=== PATIENT | male | born 1985 | race Caucasian/White ===

== ENCOUNTER 2016-10-29 23:44 | Observation (INO) | payer OTHER ==
[2016-10-30] MEDS ORDERED: NS 0.9% 1000 ML* 1,000 ML IV ONE (02:04)
[2016-10-30 02:14] LABS: Hematocrit 45 % (42-52); Hemoglobin 15.8 g/dl (14.0-18.0); Mean Corpuscular HGB Conc 35 g/dl (31-36); Mean Corpuscular Hemoglobin 30 pg (27-31); Mean Corpuscular Volume 84 fL (80-94); Mean Platelet Volume 9 um3 (7.4-10.4); Red Blood Count 5.34 10^6/ul (4.0-5.4); Red Cell Distribution Width 13 % (10.5-15); White Blood Count 16.8 10^3/ul (3.5-10.8)
[2016-10-30 02:19] LABS: Urine Bacteria Absent (Absent); Urine Bilirubin Negative (Negative); Urine Glucose Negative (Negative); Urine Nitrite Negative (Negative)
[2016-10-30 02:31] LABS: Albumin 4.8 g/dL (3.2-5.2); BUN/Creatinine Ratio 13.6 (8-20); C Reactive Protein 12.51 mg/L (< 5.00); Calcium 10.1 mg/dL (8.6-10.3); EGFR African American 129.1 (>60); EGFR Non-African American 100.4 (>60); Globulin 3.5 g/dL (2-4); Potassium 3.5 mmol/L (3.5-5.0); Total Bilirubin 1.4 mg/dL (0.2-1.0); Total Protein 8.3 g/dL (6.4-8.9)
[2016-10-30] MEDS ORDERED: Ondansetron INJ* 2 MG/ML VIAL IV ONE (02:33)
[2016-10-30] MEDS ORDERED: Ketorolac INJ* 30 MG/ML 1 ML VIAL IV PUSH ONE (02:33)
[2016-10-30] MEDS ORDERED: Pantoprazole IV* 40 MG IV ONE (02:33)
[2016-10-30] MEDS ORDERED: Iohexol 300* (CONTRAST) 10 ML SDV IV ONE (03:02)
--- NOTE | 2016-10-30 06:38 | ED ---
Linda Gill Rebecca, scribed for Ben Arzate MD on 10/30/16 at 0231 . Abdominal Pain/Male - HPI Summary HPI Summary: Pt is a 31 y/o M who presents to ED c/o abd pain since approximately 1900. Pain is predominantly in the epigastric with slight RUQ pain. Pain has been constant since onset, waxing and waning in intensity and is currently moderate, ranked 4/ 10. Sx aggravated by walking, alleviated slightly by Tums. Additionally c/o N/ V. Abd pain did not improve after vomiting. Denies fever. No PSHx on the abdomen. - History of Current Complaint Chief Complaint: EDAbdPain Stated Complaint: ABD PAIN Time Seen by Provider: 10/30/16 02:13 Hx Obtained From: Patient Onset/Duration: Sudden Onset, Still Present Timing: Constant Severity Currently: Moderate Pain Intensity: 4 Pain Scale Used: 0-10 Numeric Location: Epigastric Aggravating Factor(s): Other: - Walking Alleviating Factor(s): Other: - Tums - slightly Associated Signs And Symptoms: Positive: Vomiting, Diarrhea. Negative: Fever - Allergies/Home Medications Allergies/Adverse Reactions: Allergies Allergy/AdvReac Type Severity Reaction Status Date / Time No Known Allergies Allergy Verified 02/26/15 08:50 PMH/Surg Hx/FS Hx/Imm Hx Endocrine/Hematology History: Denies: Hx Diabetes Cardiovascular History: Reports: Hx Hypercholesterolemia Denies: Hx Hypertension - Surgical History Surgery Procedure, Year, and Place: implant Hyprocure each ankle 2013; wisdom teeth Infectious Disease History: No Infectious Disease History: Denies: Hx Clostridium Difficile, Hx Hepatitis, Hx Human Immunodeficiency Virus (HIV), Hx of Known/Suspected MRSA, Hx Shingles, Hx Tuberculosis, Hx Known/ Suspected VRE, Hx Known/Suspected VRSA, History Other Infectious Disease, Traveled Outside the [place] in Last 30 Days - Family History Known Family History: Positive: Diabetes - Social History Alcohol Use: Occasionally Substance Use Type: Reports: None Smoking Status (MU): Never Smoked Tobacco Review of Systems Negative: Fever Positive: Abdominal Pain - Epigastric, Vomiting, Nausea All Other Systems Reviewed And Are Negative: Yes Physical Exam - Summary Physical Exam Summary: The patient is well-nourished in no acute distress and in no acute pain. The skin is warm and dry and skin color reflects adequate perfusion. Good skin turgor. HEENT: The head is normocephalic and atraumatic. The pupils are equal and reactive. The conjunctivae are clear and without drainage. Nares are patent and without drainage. Mouth reveals moist mucous membranes and the throat is without erythema and exudate. The external ears are intact. The ear canals are patent and without drainage. The tympanic membranes are intact. Neck is supple with full range of motion and non-tender. Respiratory: Chest is non-tender. Lungs are clear to auscultation and breath sounds are symmetrical and equal. Cardiovascular: Hear is regular rate and rhythm. There is no murmur or rub auscultated. There is no peripheral edema and pulses are symmetrical and equal. Abdomen: The abdomen is soft with tenderness in the epigastric and RUQ regius. No tenderness over McBurney's point. There are normal bowel sounds heard in all four quadrants and there is no organomegaly palpated. Musculoskeletal: No CVA tenderness. Extremities are non-tender with full range of motion. There is good capillary refill. There is no peripheral edema or calf tenderness elicited. Neurological: Patient is alert and oriented to person, place and time. Psychiatric: The patient has an appropriate affect and does not exhibit any anxiety or depression. Triage Information Reviewed: Yes Vital Signs On Initial Exam: Initial Vitals Temp Pulse Resp BP Pulse Ox 98.9 F 109 17 118/77 100 10/29/16 23:48 10/29/16 23:48 10/29/16 23:48 10/29/16 23:48 10/29/16 23:48 Vital Signs Reviewed: Yes Diagnostics - Vital Signs Vital Signs Temp Pulse Resp BP Pulse Ox 10/30/16 02:00 104 122/78 97 10/30/16 01:30 96 129/75 95 10/30/16 01:13 90 98 10/30/16 00:30 121/76 10/29/16 23:48 98.9 F 109 17 118/77 100 - Laboratory Lab Results: Lab Results 10/30/16 10/30/16 Range/Units 01:05 01:05 WBC 16.8 H (3.5-10.8) 10^3/ul RBC 5.34 (4.0-5.4) 10^6/ul Hgb 15.8 (14.0-18.0) g/dl Hct 45 (42-52) % MCV 84 (80-94) fL MCH 30 (27-31) pg MCHC 35 (31-36) g/dl RDW 13 (10.5-15) % Plt Count 224 (150-450) 10^3/ul MPV 9 (7.4-10.4) um3 Neut % (Auto) 85.6 H (38-83) % Lymph % (Auto) 7.0 L (25-47) % [place] % (Auto) 7.1 (1-9) % Eos % (Auto) 0.1 (0-6) % Baso % (Auto) 0.2 (0-2) % Absolute Neuts (auto) 14.3 H (1.5-7.7) 10^3/ul Absolute Lymphs (auto) 1.2 (1.0-4.8) 10^3/ul Absolute Monos (auto) 1.2 H (0-0.8) 10^3/ul Absolute Eos (auto) 0 (0-0.6) 10^3/ul Absolute Basos (auto) 0 (0-0.2) 10^3/ul Absolute Nucleated RBC 0.01 10^3/ul Nucleated RBC % 0.1 Urine Color Yellow Urine Appearance Clear Urine pH 8.0 (5-9) Ur Specific [place] 1.026 (1.010-1.030) Urine Protein 1+(30 mg/dl) H (Negative) Urine Ketones 2+ H (Negative) Urine Blood Negative (Negative) Urine Nitrate Negative (Negative) Urine Bilirubin Negative (Negative) Urine Urobilinogen Negative (Negative) Ur Leukocyte Esterase Negative (Negative) Urine WBC (Auto) Trace(0-5/hpf) (Absent) Urine RBC (Auto) Trace(0-2/hpf) (Absent) Urine Bacteria Absent (Absent) Urine Glucose Negative (Negative) Result Diagrams: 10/30/16 01:05 10/30/16 01:05 Lab Statement: Any lab studies that have been ordered have been reviewed, and results considered in the medical decision making process. - CT CT Abd/Pel CT Interpretation: Positive (See Comments) - There is mild, but abnormal dilatation of the appendix up to approximately 9.5 mm. There may be very mild fatty stranding caround the appendix. Although the findings are borderline and mild, early acute appendicitis can look like this and close observation/ followup is recommended. No abscess. No bowel obstruction free air, or free fluid. Negative for oclitis or diverticulitis. Normal kidneys urinary trace and urinary bladder. Slightly prominent prostate. Normal liver. Normal gallbladder. Normal pancreas. Normal adrenal glands. ED physician reviewed radiology report. CT Interpretation Completed By: Radiologist Abdominal Pain Fem Course/Dx - Course Assessment/Plan: Pt is a 31 y/o M who presents to ED c/o abd pain since approximately 1900. Pain is predominantly in the epigastric with slight RUQ pain. Pain has been constant since onset, waxing and waning in intensity and is currently moderate, ranked 4/10. Sx aggravated by walking, alleviated slightly by Tums. Additionally c/o N/V. Abd pain did not improve after vomiting. Denies fever. No PSHx on the abdomen. CT Abd/Pel interpretation above. WBC of 16.8, CRP of 12.51. UA reveals urine color: yellow, appearance: clear, protein: 1+, ketones: 2+, WBC: trace, RBC: trace and negative for blood, nitrate and bacteria. In the ED course, pt recieved Toradol, Zofran and protonix. Discussed care of pt with Dr. Sawyer who will evaluate the pt in the ED. Pt will be signed out with Dx of abdominal pain and appendicitis, pending disposition, awaiting Dr. Sawyer consultation. - Diagnoses Differential Diagnosis/HQI/PQRI: Appendicitis, Gall Bladder Disease Provider Diagnoses: Abdominal pain, Appendicitis - Provider Notifications Discussed Care Of Patient With: Emre Sawyer Time Discussed With Above Provider: 06:23 Instructed by Provider To: Other - Will evaluate the pt in the ED. Discharge - Discharge Plan Condition: Stable Disposition: OTHER Discharge Disposition Comment: Pt will be signed out, pending dispo, awaiting Dr. Sawyer consult. Referrals: Manuela Emmanuel MD [Primary Care Provider] - The documentation as recorded by the Linda rogel Rebecca accurately reflects the service I personally performed and the decisions made by me, Ben Arzate MD.
--- NOTE | 2016-10-30 08:16 | RAD ---
INDICATION: ] Right upper quadrant pain. Epigastric pain. COMPARISON: None TECHNIQUE: Axial source images were obtained from the hemidiaphragms to the symphysis pubis following administration of oral and intravenous contrast. 85 mL Omnipaque 300 was utilized. Coronal and sagittal reconstructed images were acquired. Lung bases: The lung bases are clear. Liver: The liver is normal in size. There are no masses. There is no ductal dilatation. Gallbladder: There are no calcified gallstones. There is no evidence of wall thickening or pericholecystic fluid. Spleen: The spleen is normal in size. There are no masses. Pancreas: There is no focal pancreatic mass or ductal dilatation. Adrenal glands: There is no evidence of adrenal mass. Kidneys: The kidneys are normal in size and position. There are prompt nephrograms and there is prompt excretion bilaterally. There are no renal parenchymal masses. There is no evidence of nephrolithiasis. Adenopathy: There is no evidence of adenopathy by size criteria. Fluid collections: There are no free or localized fluid collections. Vessels:There are no significant atherosclerotic changes involving the aorta. There is no focal aneurysm. The iliac vessels are normal in caliber. The IVC appears normal. GI tract: The upper GI tract is unremarkable. There is mild thickening of the terminal ileum which is likely reactive. The appendix is dilated and fluid-filled. There is periappendiceal inflammatory change. There is mild thickening of cecal tip which is likely reactive. The colon is otherwise unremarkable. There are no findings of obstruction or perforation. Pelvic organs: The prostate and seminal vesicles appear normal Bladder: There are no bladder masses. Abdominal and pelvic soft tissues: The extraperitoneal abdominal and pelvic soft tissues appear normal.. Osseous structures: There are no acute osseous findings. Other: None IMPRESSION: CT FINDINGS OF ACUTE APPENDICITIS
[2016-10-30] MEDS ORDERED: HYDROmorphone* 1 MG/ML 1 ML CARPUJECT IV PRN ×2 (08:24→13:40)
[2016-10-30] MEDS ORDERED: Ondansetron INJ* 2 MG/ML VIAL IV PRN (08:24)
--- NOTE | 2016-10-30 08:58 | PN ---
Progress Note - Progress Note Date of Service: 10/30/16 Note: Surgery Asked by Dr. Sawyer to take over care of Mr. Yates. I have met with and examined him and I agree that he has appendicitis. I have described to him the nature of laparoscopic appendectomy, its risks, benefits, and alternatives. He understands and agrees to proceed. Rufino
[2016-10-30] MEDS ORDERED: ZOSYN 3.375 GM Q6H - Intermittant 30 min Infusion IVPB SCH ×2 (09:00)
--- NOTE | 2016-10-30 09:12 | HP ---
CC: Dr. Manuela Emmanuel * DATE OF ADMISSION: 10/29/16 ATTENDING PHYSICIAN: Dr. Nicole Espinoza * (dictated by ROCÍO Lopez) CHIEF COMPLAINT: Abdominal pain. HISTORY OF PRESENT ILLNESS: Mr. Yates is a pleasant 31-year-old gentleman who presented to the emergency room in the late evening hours of 10/29/16 with complaints of worsening abdominal pain. Patient reports that his pain started roughly around 7 o'clock yesterday evening while he was eating dinner. He described it as dull aching pain that initially started in the epigastric area, and then gradually migrated to the umbilical and right abdomen. He notes that the pain has been consistent since then and associated with nausea and one episode of vomiting. He denies having any similar complaints in the past. He presented to the emergency room after he called his primary care physician who advised him to seek medical attention. During his ED stay overnight, patient had laboratory workup that showed leukocytosis with white count 16,000, and he also had a CT scan of the abdomen and pelvis that showed finding consistent with acute appendicitis for which we were asked to see the patient for further evaluation and possible surgical intervention. Patient feels slightly better this morning after he took some pain medication in the ED overnight. He still has moderate consistent abdominal pain on the right side, but denies any nausea or vomiting at this time. He otherwise is a relatively healthy young gentleman with no significant past medical history. PAST MEDICAL HISTORY: Significant for: GERD for which he has been on Omeprazole for a few years, and now he's taking on an as-needed basis. PAST SURGICAL HISTORY: Significant for hyprocure ankle implants bilaterally in 2013, as well as wisdom teeth removal years ago. CURRENT MEDICATIONS: His medications at home include: 1. Occasional Tums for heartburn. 2. Omeprazole for GERD symptoms on an as-needed basis. ALLERGIES: He has no known drug allergies. FAMILY HISTORY: Noncontributory. SOCIAL HISTORY: The patient is employed. He's a non-smoker who drinks alcohol occasionally, and caffeine intake is minimal. REVIEW OF SYSTEMS: See HPI, otherwise negative. He reports middle and right- sided abdominal pain with associated nausea and one episode of vomiting, but denies any changes in bowel habits, fever, chills, or history of kidney stones. No headache, dizziness, blurred vision. No sore throat, cough, shortness of breath or chest pain. No flank pain, dysuria, hematuria or urinary frequency. No fever, chills, night sweats, or recent weight loss. PHYSICAL EXAMINATION GENERAL: He is a pleasant healthy-appearing, 31-year-old gentleman who appears comfortable and in no acute distress or discomfort at the time of admission. VITALS: Most recent set of vitals revealed temperature 99.5, pulse 102, respirations 20, O2 sat 95% on room air, and blood pressure 114/72. HEENT: Sclerae anicteric. PERRLA. EOMs intact. Oropharynx is pink and moist with no exudate. NECK: Supple. Trachea midline. No cervical adenopathy or thyromegaly. LUNGS: Clear to auscultation bilaterally. There are no rales, wheezing or rhonchi. HEART: Regular rate and rhythm. Normal S1 and S2 without rubs, murmurs, or gallops. BACK: Normal curvature. No CVA tenderness. ABDOMEN: Soft and nondistended. There is mild to moderate periumbilical and right lower quadrant tenderness noted on deep palpation. There is some guarding , but no rigidity noted. There is also slight rebound tenderness noted with right lower quadrant palpation. Polanco's sign was negative. There are no hernias, masses or hepatosplenomegaly. EXTREMITIES: Without cyanosis, clubbing, or edema. NEUROLOGIC: Grossly intact. RECTAL EXAM: Deferred at this time. LABORATORY WORKUP: CBC - white count 16,800, hemoglobin 15.8, hematocrit 45, and platelets 224. Chemistry - sodium 136, potassium 3.5, chloride 99, CO2 27, BUN 12, and creatinine 0.9. His glucose is 111. LFTs with slightly elevated bilirubin of 1.4, and C-reactive protein was 12.5. Normal amylase and lipase. ACCESSORY DIAGNOSTIC DATA: Patient had a CT scan of abdomen and pelvis that showed dilated appendix measuring up 9.5 mm with some mild stranding around the mesoappendix, consistent with acute appendicitis. IMPRESSION: A 31-year-old male with signs and symptoms as well as CT scan findings consistent with acute appendicitis. PLAN: Patient will be directly admitted under surgical services. I have spoken to Dr. Espinoza who agreed and accepted patient care, and will likely be taken to the operating room later this morning in anticipation for a laparoscopic appendectomy. The rationale, indications, risks and benefits of surgery were discussed with him today. Risks include but not limited to infection, bleeding, or injury to adjacent structures. The patient seems to understand and wishes to proceed as outlined. We will keep him NPO, and will cover him prophylactically with Zosyn at this point, and will follow him up accordingly. ROCÍO LOPEZ [id number]/[facility] #: [id number] MONIE
[2016-10-30] MEDS ORDERED: Zosyn per Pharmacy* NOTE FOLLOW UP PRN (09:54)
[2016-10-30] MEDS ORDERED: fentaNYL* 50 MCG/ML 2 ML VIAL (100 MCG VIAL) ONE (11:05)
[2016-10-30] MEDS ORDERED: Midazolam* 1 MG/ML 2 ML VIAL (2 MG) ONE (11:05)
[2016-10-30] MEDS ORDERED: KETAMINE HCL* 50 MG/ML 10 ML VIAL ONE (11:05)
[2016-10-30] MEDS ORDERED: Propofol* 10 MG/ML 20 ML BTL IV PUSH ONE (11:09)
[2016-10-30] MEDS ORDERED: Rocuronium* 10 MG/ML VIAL ONE (11:10)
[2016-10-30] MEDS ORDERED: Succinylcholine* 20 MG/ML 10 ML VIAL ONE ×2 (12:14→13:49)
[2016-10-30] MEDS ORDERED: Lidocaine 1% INJ* 10 MG/ML 30 ML SDV ONE (12:14)
[2016-10-30] MEDS ORDERED: Bupivacaine 0.25% SDV* 30 ML ONE (12:35)
[2016-10-30] MEDS ORDERED: DiMENhydriNATE IV* 50 MG/ML VIAL IV PUSH PRN (13:40)
[2016-10-30] MEDS ORDERED: fentaNYL* 50 MCG/ML 2 ML VIAL (100 MCG VIAL) IV PRN (13:40)
--- NOTE | 2016-10-30 13:42 | SURGPN ---
Brief Operative Note - Surgery Procedures: 10/30/16 Op Note Pre-op dx: appendicitis Post-0p dx: same Procedure: laparoscopic appendectomy Surgeon: Alexis Asst: IRAM Santiago Anesth: general EBL: 100 cc Complications: none SCDs on during surgery Abx: given pre-op Pt. tolerated procedure well and was transferred to in a stable condition. CLFoster
[2016-10-30] MEDS ORDERED: Dexamethasone IV* 4 MG/ML 1 ML (4 MG) ONE (13:49)
[2016-10-30] MEDS ORDERED: Ketorolac INJ* 30 MG/ML 1 ML VIAL ONE (13:49)
[2016-10-30] MEDS ORDERED: Ondansetron INJ* 2 MG/ML VIAL ONE (13:49)
[2016-10-30] MEDS ORDERED: Zosyn per Pharmacy* NOTE FOLLOW UP SCH (14:00)
[2016-10-30] MEDS ORDERED: DiMENhydriNATE IV* 50 MG/ML VIAL ONE (14:26)
[2016-10-30] MEDS: ZOSYN 3.375 GM Q6H - Intermittant 30 min Infusion IVPB SCH ×6 (15:33→18:43)
[2016-10-30] MEDS: oxyCODONE/Acetamin 5/325 MG* TAB PO PRN (22:52)
[2016-10-31] MEDS: ZOSYN 3.375 GM Q6H - Intermittant 30 min Infusion IVPB SCH ×4 (01:01→06:26)
[2016-10-31] MEDS: NS 0.9% 1000 ML* 1,000 ML IV SCH ×2 (01:01→08:45)
--- NOTE | 2016-10-31 04:23 | OP ---
CC: [facility]; Dr. Manuela Emmanuel OPERATIVE SUMMARY: DATE OF OPERATION: 10/30/16 DATE OF : 83 SURGEON: Nicole Espinoza MD SERVICE OR WORK DISPATCHER: none PRE-OP DIAGNOSIS: Appendicitis. POST-OP DIAGNOSIS: Appendicitis plus pigmented lesion of the umbilicus. INDICATIONS: This patient is a 31-year-old male who presented to the emergency room with abdominal pain consistent with appendicitis prompting a plan for surgical intervention. DESCRIPTION OF PROCEDURE: He was brought to her operating room and placed on the OR table in a supine position and given general anesthesia. The abdomen was prepped and draped in the usual sterile fashion. After infiltrating with local anesthetic, it was recognized that there was a pigmented lesion in the umbilicus. I elected to excise this with an elliptical incision encompassing the lesion and handed all of this as a specimen. Then blunt dissection was used to dissect down to the fascia, it was grasped and incised, and a 0 Biosyn stitch was placed on either side of the fascial incision. A trocar was inserted into the abdomen and the abdomen was insufflated. Then under direct visualization, a suprapubic and a left flank port were replaced after infiltrated with a local anesthetic. The cecum was rotated medially along with the terminal ileum and this exposed an acutely inflamed appendix that was densely adherent to the underside of the terminal ileum. Blunt and electrocautery dissection were used to free the appendix up and in the process of doing this, part of the mesoappendix was divided bluntly. The base of the appendix was divided with an Endo JENNIFER stapler and this encompassed a portion of the mesoappendix as well. The appendix was placed in an Endo Catch bag and withdrawn from the abdomen through the infraumbilical port site. There was some bleeding that had produced some pulling of blood in the right lower quadrant and pelvis. This was irrigated out with copious irrigation of saline. Then, the region of the appendix was checked for hemostasis. This was found to be adequate, so all ports were withdrawn under direct visualization. It should be mentioned that the small and large intestine that were seen were noted to be normal. All ports were withdrawn under direct visualization. The previously placed 0 Biosyn was used to close the fascia of the infraumbilical port site and 4-0 Biosyn was used to close the skin of all incisions. Steri- Strips were applied. All sponge and instrument counts were correct. The patient tolerated the procedure well and was transferred to Recovery in a stable condition. [id number]/[facility] #: [id number] [facility]
[2016-10-31] MEDS: oxyCODONE/Acetamin 5/325 MG* TAB PO PRN ×2 (06:33→10:00)
--- NOTE | 2016-10-31 08:05 | PN ---
Progress Note - Progress Note Date of Service: 10/31/16 Note: Surgery Mr. Yates has a "pressure pain" in the upper abdomen that just started, but otherwise he has been feeling "great". He is tolerating food and has been ambulating. Vital Signs 10/30/16 10/30/16 10/30/16 13:42 13:45 13:50 Temperature 98.8 F Pulse Rate 118 103 104 Respiratory 20 24 24 Rate Blood Pressure 99/71 117/76 124/74 (mmHg) O2 Sat by Pulse 92 96 98 Oximetry 10/30/16 10/30/16 10/30/16 14:00 14:15 14:30 Temperature Pulse Rate 84 89 87 Respiratory 18 18 18 Rate Blood Pressure 121/82 131/83 134/84 (mmHg) O2 Sat by Pulse 98 98 98 Oximetry 10/30/16 10/30/16 10/30/16 14:45 15:05 15:06 Temperature 99.1 F 99.1 F Pulse Rate 90 106 106 Respiratory 18 16 16 Rate Blood Pressure 127/84 126/78 126/78 (mmHg) O2 Sat by Pulse 98 98 98 Oximetry 10/30/16 10/30/16 10/30/16 16:18 17:11 19:18 Temperature 98.9 F 98.4 F Pulse Rate 88 109 Respiratory 16 18 16 Rate Blood Pressure 112/69 104/66 (mmHg) O2 Sat by Pulse 96 93 Oximetry 10/30/16 10/30/16 10/30/16 19:24 21:02 22:00 Temperature 97.7 F 98.3 F Pulse Rate 93 79 Respiratory 16 18 16 Rate Blood Pressure 122/67 109/60 (mmHg) O2 Sat by Pulse 94 98 96 Oximetry 10/30/16 10/30/16 10/31/16 22:52 23:55 03:38 Temperature 98.4 F 97.3 F Pulse Rate 72 51 Respiratory 16 16 16 Rate Blood Pressure 97/43 96/42 (mmHg) O2 Sat by Pulse 96 97 Oximetry 10/31/16 06:33 Temperature Pulse Rate Respiratory 16 Rate Blood Pressure (mmHg) O2 Sat by Pulse Oximetry Abd: good BS, distended, non-tender Incisions: dressings intact. Intake & Output 10/30/16 10/31/16 10/31/16 22:59 06:59 14:59 Intake Total 465 840 Output Total 1075 200 Balance -610 640 Weight 140 lb Intake: IV Fluids 340 LR 340 IVPB 105 Oral 360 500 Output: Urine 1075 200 Other: # Voids 2 A/P: POD#1 s/p lap appy, doing well. Can go home and f/u in 1 wk.
[2016-10-31] MEDS ORDERED: Influenza VAC *QUAD* 2017-18* 0.5 ML SYRINGE IM ONE (09:00)
[2016-10-31 10:42] VITALS: BP 149/90
== END 2016-10-31 11:30 | disposition home or self-care (01) ==
LOC: ED 23:44 → OR 10-30 13:03 → SSU 10-30 17:05
PROVIDERS: ADMIT Surgery; ATTEND Surgery
DX: K35.80 Unspecified acute appendicitis (principal); R11.2 Nausea with vomiting, unspecified; Z23 Encounter for immunization; R10.13 Epigastric pain; R10.11 Right upper quadrant pain
CPT/HCPCS: 36415; 74177; 80053; 81003; 81015; 82150; 83605; 83690; 85025; 86140; 88304; 88305; 90471; 90686; 94760; 96374; 96375; 96376; 99284; A9270-GY; C1776; G0008; G0378; J0330; J1100; J1240; J1885; J2001; J2250; J2405; J2543; J2704; J3010; Q9967

== ENCOUNTER 2017-05-11 08:02 | Emergency (ER) | payer OTHER ==
[2017-05-11 08:11] VITALS: BP 143/90
--- NOTE | 2017-06-04 14:09 | UC ---
Keven Gill Jennifer, scribed for Naty Snyder MD on 05/11/17 at 0922 . General HPI - HPI Summary HPI Summary: The patient is a 31 year old male who complains of sore throat and post-nasal drip since five days ago. The patient explains he took Mucinex D for three days , which helped him feel better, but then he began to feel a tickle in his chest. He decided to switch to Mucinex cough suppressant, but yesterday morning , he felt a rawness or irritation in his chest and his post nasal drip returned as a dark howell mucous. He reports that his chest pressure got worse throughout the day yesterday and his sore throat returned worse than before. He went back to taking Mucinex D, which alleviated his sore throat. However, today he has been feeling shortness of breath while speaking in meetings and complains of a change in his voice. The patient denies cough, feeling congested , and rash. He also adds that his and daughter were both sick last week. - History of Current Complaint Chief Complaint: UCGeneralIllness Stated Complaint: COUGH, AND CHEST CONGESTION Hx Obtained From: Patient Onset/Duration: Sudden Onset, Lasting Days - 5 days, Still Present Timing: Constant Onset Severity: Mild Current Severity: Mild Pain Intensity: 0 Associated Signs & Symptoms: Positive: Other - sore throat, post-nasal drip, cough, irritation of chest, chest pressure, shortness of breath, change in voice. NEGATIVE: feeling congested, rash - Allergy/Home Medications Allergies/Adverse Reactions: Allergies Allergy/AdvReac Type Severity Reaction Status Date / Time No Known Allergies Allergy Verified 05/11/17 08:07 Home Medications: Home Medications Omeprazole CAP* [Prilosec CAP* 20 MG] 20 mg PO DAILY 05/11/17 [History Confirmed 05/11/17] PMH/Surg Hx/FS Hx/Imm Hx Previously Healthy: Yes - NEG: HTN, DM - Surgical History Surgical History: Yes Surgery Procedure, Year, and Place: implant Hyprocure each ankle 2013; wisdom teeth appy - Family History Known Family History: Positive: Diabetes - Social History Alcohol Use: None Substance Use Type: None Smoking Status (MU): Never Smoked Tobacco - Immunization History Most Recent Influenza Vaccination: 2016 Most Recent Pneumonia Vaccination: never Review of Systems Constitutional: Other - Change in voice ENT: Sore Throat, Other - Post nasal drip Respiratory: Shortness Of Breath, Cough Cardiovascular: Other - Chest pressure, irritation of chest All Other Systems Reviewed And Are Negative: Yes Physical Exam - Summary Physical Exam Summary: Appearance: Well-Nourished Eye Exam: Normal ENT Exam: Dark cerumen impaction bilaterally. Uvula midline, posterior pharynx erythematous, tonsils are a little red, no purulence, no exudates. Respiratory Exam: Normal, no dyspnea, no tachypnea, normal respiratory rate Cardiovascular Exam: Normal Cardiovascular: Heart rate regular, good general skin color, good capillary refill Abdominal Exam: Normal Abdomen Description: Nontender, No Organomegaly, Soft Bowel Sounds: Present Musculoskeletal Exam: Normal Musculoskeletal: Strength Intact Neurological Exam: Normal: nonfocal, grossly intact Psychological Exam: Normal: conversing easily and appropriately Skin Exam: Normal: no visible or reported rash Triage Information Reviewed: Yes Appearance: Well-Nourished Vital Signs: Initial Vital Signs Temp 97.8 F 05/11/17 08:08 Pulse 90 05/11/17 08:08 Resp 17 05/11/17 08:08 BP 143/90 05/11/17 08:08 Pulse Ox 100 05/11/17 08:08 Vital Signs Reviewed: Yes Eye Exam: Normal ENT: Positive: Pharynx normal, TM dull, Other - + bilat max and frontal sinus general discomfort Neck exam: Normal Respiratory Exam: Other - rhonchorus cough Respiratory: Positive: Wheezing Cardiovascular Exam: Normal Abdominal Exam: Normal Bowel Sounds: Positive: Present Musculoskeletal Exam: Normal Neurological Exam: Normal - nonfocal grossly intact Psychological Exam: Normal Skin Exam: Normal Course/Dx - Course Course Of Treatment: Reviewed s/sx with pt and coa / tx plan. Questions as posed answered to the best of my ability. - Differential Dx - Multi-Symptom Provider Diagnoses: Bronchitis. Sinusitis Discharge - Sign-Out/Discharge Documenting (check all that apply): Discharge - Discharge Plan Condition: Stable Disposition: HOME Prescriptions: Albuterol HFA INHALER* [Ventolin HFA Inhaler*] 1 - 2 puff INH Q4H PRN #1 mdi PRN Reason: Wheezing Azithromyxin JB (NF) [Z-Jb (Zithromax) 250 mg tabs #6] 2 tab PO .TODAY, THEN 1 DAILY #6 tab Patient Education Materials: Sinusitis (ED), Acute Bronchitis (ED) Referrals: Manuela Emmanuel MD [Primary Care Provider] - Additional Instructions: Please follow up with your primary care provider in 1-2 weeks. Seek medical attention for worse or new problems in the meantime. Your blood pressure was elevated during today's visit, 143/90. Please follow up with your primary care provider in 1-2 weeks. - Billing Disposition and Condition Condition: STABLE Disposition: HOME The documentation as recorded by the Keven rogel Jennifer accurately reflects the service I personally performed and the decisions made by me, Naty Snyder MD.
== END 2017-05-11 09:35 | disposition home or self-care (01) ==
LOC: UCEAST 08:02
DX: J40 Bronchitis, not specified as acute or chronic (principal); J32.9 Chronic sinusitis, unspecified; H61.23 Impacted cerumen, bilateral
CPT/HCPCS: 99212; G0463

== ENCOUNTER 2017-10-03 08:11 | Emergency (ER) | payer OTHER ==
[2017-10-03 08:29] VITALS: BP 133/82
--- NOTE | 2017-10-03 09:04 | UC ---
Throat Pain/Nasal Shashi HPI - HPI Summary HPI Summary: Patient is complaining of a discreet area of soreness under the angle of the mandibule. states it was there a few days ago, went away and is back. no fever, no cough, no real sore throat. - History of Current Complaint Chief Complaint: UCBackPain Stated Complaint: SORE NECK Time Seen by Provider: 10/03/17 08:48 Hx Obtained From: Patient Onset/Duration: Sudden Onset, Lasting Hours Severity: Mild Pain Intensity: 2 Associated Signs & Symptoms: Positive: Dysphagia - Allergies/Home Medications Allergies/Adverse Reactions: Allergies Allergy/AdvReac Type Severity Reaction Status Date / Time No Known Allergies Allergy Verified 05/11/17 08:07 Home Medications: Home Medications Methyl Salicylate/Menthol [Bengay Greaseless Cream] 10/03/17 [History] PMH/Surg Hx/FS Hx/Imm Hx Previously Healthy: Yes - Surgical History Surgical History: Yes Surgery Procedure, Year, and Place: implant Hyprocure each ankle 2013; wisdom teeth appy - Family History Known Family History: Positive: None, Diabetes - Social History Alcohol Use: Occasionally Substance Use Type: None Smoking Status (MU): Never Smoked Tobacco - Immunization History Most Recent Influenza Vaccination: 2016 Most Recent Pneumonia Vaccination: never Review of Systems Constitutional: Negative Skin: Negative Eyes: Negative ENT: Sore Throat Respiratory: Negative Cardiovascular: Negative Gastrointestinal: Negative Genitourinary: Negative Motor: Negative Neurovascular: Negative Musculoskeletal: Negative Neurological: Negative Psychological: Negative Is Patient Immunocompromised?: No All Other Systems Reviewed And Are Negative: Yes Physical Exam Triage Information Reviewed: Yes Appearance: Well-Appearing, Well-Nourished, Pain Distress Vital Signs: Initial Vital Signs Temp 97.8 F 10/03/17 08:21 Pulse 62 10/03/17 08:21 Resp 16 10/03/17 08:21 BP 133/82 10/03/17 08:21 Pulse Ox 100 10/03/17 08:21 Vital Signs Reviewed: Yes Eye Exam: Normal ENT: Positive: Pharyngeal erythema, Tonsillar swelling - more on right then left Dental Exam: Normal Neck exam: Normal Neck: Positive: Supple, Nontender, No Lymphadenopathy Respiratory Exam: Normal Respiratory: Positive: Chest non-tender, Lungs clear, Normal breath sounds Cardiovascular Exam: Normal Cardiovascular: Positive: RRR, No Murmur, Pulses Normal Abdominal Exam: Normal Abdomen Description: Positive: Nontender, No Organomegaly, Soft Bowel Sounds: Positive: Present Musculoskeletal Exam: Normal Neurological Exam: Normal Psychological Exam: Normal Skin Exam: Normal Throat Pain/Nasal Course/Dx - Course Course Of Treatment: hx obtained, exam performed, meds reviewed, rapid strep obtained. and is negative. educated on symptomatic treatment. - Differential Dx/Diagnosis Differential Diagnosis/HQI/PQRI: Peritonsillar Abscess, Pharyngitis, Tonsillitis , URI Provider Diagnoses: pharyngitis Discharge - Sign-Out/Discharge Documenting (check all that apply): Patient Departure - Discharge Plan Condition: Stable Disposition: HOME Patient Education Materials: Pharyngitis (ED) Referrals: Manuela Emmanuel MD [Primary Care Provider] - Additional Instructions: Your strep was negative, I recommend warm salt water gargles, increased water intake and follow up if symtpoms progress. - Billing Disposition and Condition Condition: STABLE Disposition: Home
== END 2017-10-03 09:57 | disposition home or self-care (01) ==
LOC: UCEAST 08:11
DX: J02.9 Acute pharyngitis, unspecified (principal); R13.10 Dysphagia, unspecified
CPT/HCPCS: 87651; 99211; G0463

== ENCOUNTER 2019-04-13 18:49 | Emergency (ER) | payer OTHER ==
[2019-04-13 19:18] VITALS: BP 140/93
--- NOTE | 2019-04-13 20:27 | UC ---
Eye Complaint HPI - HPI Summary HPI Summary: 33-year-old male presenting with left lower eyelid pain, redness, and swelling that has progressed since this morning. Patient states he thought it was a stye because he gets them every so often. States this is the worst when he is ever had and is concerned it may be something worse. States there is a pressure feeling. Notes mild photophobia. Denies drainage or crusting. Denies vision changes. Denies pain with eye movement. Denies fever and chills. States he has been using Visine drops without relief. - History of Current Complaint Chief Complaint: UCSkin Stated Complaint: EYE COMPLAINT Hx Obtained From: Patient Pain Intensity: 2 Pain Scale Used: 0-10 Numeric - Allergies/Home Medications Allergies/Adverse Reactions: Allergies Allergy/AdvReac Type Severity Reaction Status Date / Time No Known Allergies Allergy Verified 04/13/19 19:12 Home Medications: Home Medications Omeprazole CAP (NF) [Prilosec CAP* 20 MG] 20 mg PO DAILY 05/11/17 [History Confirmed 04/13/19] buPROPion TAB* [Wellbutrin TAB*] 150 mg PO DAILY 05/18/18 [History Confirmed ] PMH/Surg Hx/FS Hx/Imm Hx - Surgical History Surgical History: Yes Surgery Procedure, Year, and Place: implant Hyprocure each ankle 2013; wisdom teeth appy - Family History Known Family History: Positive: None, Diabetes - Social History Alcohol Use: Rare Substance Use Type: None Smoking Status (MU): Never Smoked Tobacco - Immunization History Most Recent Influenza Vaccination: 2016 Most Recent Pneumonia Vaccination: never Review of Systems All Other Systems Reviewed And Are Negative: Yes Constitutional: Positive: Negative Eyes: Positive: Photophobia, Other - "stye" left lower lid. Negative: Blurred Vision, Diplopia, Drainage, Eye Redness ENT: Positive: Negative Respiratory: Positive: Negative Cardiovascular: Positive: Negative Musculoskeletal: Positive: Negative Neurological/Mental Status: Positive: Negative Physical Exam - Summary Physical Exam Summary: Vital Signs Reviewed: Yes A+Ox3, no distress Eyes: Conjunctiva Clear, RAMOS. EOM intact and full, mild erythema of medial left lower eyelid and edema of left lower eyelid, pulled eyelid down to reveal likely purulent drainage coming to surface, no active drainage, no crusting, no red streaking ENT: Hearing grossly normal Neck: Positive: Supple Respiratory: Positive: No respiratory distress, No accessory muscle use Cardiovascular: skin reflects adequate perfusion Musculoskeletal Exam: SANDERSON x 4 without difficulty Neurological: Positive: Alert Psychological: Positive: age appropriate behavior Skin: Positive: no rash, no ecchymosis Vital Signs: Initial Vital Signs Temp 98 F 04/13/19 19:14 Pulse 72 04/13/19 19:14 Resp 16 04/13/19 19:14 BP 140/93 04/13/19 19:14 Pulse Ox 98 04/13/19 19:14 Eye Complaint Course/Dx - Course Course Of Treatment: Educated patient on signs and symptoms treatment. I stressed the importance of warm compresses and instructed to follow up wwith pcp or Tonyo if symptoms worsen or do not resolve within 1-2 weeks. Patient voiced understanding and agreed with treatment plan. - Differential Dx/Diagnosis Provider Diagnosis: Internal hordeolum of left eye Discharge ED - Sign-Out/Discharge Documenting (check all that apply): Patient Departure All imaging exams completed and their final reports reviewed: No Studies - Discharge Plan Condition: Stable Disposition: HOME Patient Education Materials: Sofia (ED) Referrals: Manuela Emmanuel MD [Primary Care Provider] - If Needed Herbert Hamilton MD [Medical Doctor] - If Needed Additional Instructions: Apply warm compresses to the eye at 3 times daily. You may take over the counter pain medications as directed. The stye may drain or spontaneously resolve over the next several days. Follow up with Dr. Hamilton listed below if symptoms do not resolve within 1-2 weeks. - Billing Disposition and Condition Condition: STABLE Disposition: Home
== END 2019-04-13 20:50 | disposition home or self-care (01) ==
LOC: UCEAST 18:49
DX: H00.025 Hordeolum internum left lower eyelid (principal)
CPT/HCPCS: 99211; G0463